=== PATIENT | female | born 1945 | race African-American/Black ===

== ENCOUNTER 2016-06-30 18:04 | Inpatient (IN) | payer BC ==
--- NOTE | ~2016-06-30 | DS ---
Discharge Summary [facility] [address] [place]. [address] NAME: FLY BELTRÁN : 41 STATUS : DIS IN PAT#: [id number] AGE: 70 ADM/REG DATE : 07/01/16 MR#: [id number] REPORT SERV DATE: 07/02/16 DICTATED BY: SHEFALI PRICE II DATE: 07/01/16 REPORT STATUS : Draft TRANSCRIBED BY: MODCharu DATE: 07/01/16 ADMISSION DATE: 07/01/2016 DISCHARGE DATE: 07/01/2016 DISCHARGE DIAGNOSES: 1. Systemic inflammatory response syndrome likely secondary to the patient's underlying progression of chronic lymphocytic leukemia. 2. Chronic lymphocytic leukemia with disease progression followed by Dr. Yap. 3. Chronic abdominal pain. 4. Splenomegaly. 5. History of ulcerative colitis. 6. History of hypertension. 7. History of hyperlipidemia. 8. History of deep vein thrombosis, on Xarelto. CONSULTS: Garrett Yap M.D. BRIEF HISTORY OF PRESENT ILLNESS: The patient is a 70-year-old female with the above history who presented to [facility] due to fever and abdominal pain. For detailed history and physical examination, please see Dr. Jarquin's note from 07/01/2016. HOSPITAL COURSE: After admission, the patient was placed on broad-spectrum antibiotics as her temperature was up to 103. Given her abdominal pain, she had a CT of the abdomen and pelvis which was unremarkable for any acute pathology, but did show extensive adenopathy throughout the mesenterium, retroperitoneum, and bilateral pelvis consistent with patient's history of CLL. Otherwise splenomegaly. Her urinalysis was unremarkable and chest x-ray showed a prominence of the superior portion of the right hilum possibly hilar adenopathy. Her white blood cell count is 49 consistent with her history. Dr. Yap evaluated the patient this morning, and thought that all of her symptoms have been chronic and related to her underlying disease process. He is planning on starting her on clinical trial starting tomorrow and is recommending discharging home and follow up in clinic. Currently, her fever has resolved. She was mildly tachycardic and her heart rate has improved and she feels better. We will continue her home medications and discharge home. DISCHARGE MEDICATIONS: 1. Atorvastatin 10 mg p.o. at bedtime. 2. Prilosec 40 mg p.o. daily. 3. Xarelto 20 mg p.o. daily. 4. Bentyl 10 mg p.o. t.i.d. p.r.n. 5. Norvasc 10 mg p.o. daily. 6. Valsartan 320 mg p.o. daily. DISCHARGE INSTRUCTIONS: Followup with Dr. Yap tomorrow. Discharge Summary [address] [place]. [address] NAME: FLY BELTRÁN : 41 STATUS : DIS IN PAT#: [id number] AGE: 70 ADM/REG DATE : 07/01/16 MR#: [id number] REPORT SERV DATE: 07/02/16 DICTATED BY: SHEFALI PRICE II DATE: 07/01/16 REPORT STATUS : Draft TRANSCRIBED BY: ARMANDO DATE: 07/01/16 NICOLE/ARMANDO Shefali Price II, MD / [id number] CC: MD Joshua Harrison M.D.
--- NOTE | ~2016-06-30 | HP ---
History And Physical [place] [address] [facility] [place]. [address] NAME: FLY BELTRÁN : 41 STATUS : ADM IN [facility]#: [id number] AGE: 70 ADM/REG DATE : 07/01/16 MR#: [id number] REPORT SERV DATE: 07/01/16 DICTATED BY: SHEFALI CALVO DATE: 07/01/16 REPORT STATUS : Draft TRANSCRIBED BY: ARMANDO DATE: 07/01/16 DATE OF ADMISSION: 07/01/2016 POINT OF ENTRY: [facility] Emergency Department. PRIMARY ONCOLOGIST: Garrett Yap M.D. PRIMARY NEW ACCOUNT INTERVIEWER: Bashir Lawson M.D. CHIEF COMPLAINT: Fevers and abdominal pain. HISTORY OF PRESENT ILLNESS: Ms Beltrán is a 70-year-old female with history of CLL, not currently undergoing chemotherapy as well as hypertension, hyperlipidemia, and ulcerative colitis, who presents to the emergency department today with a two-day history of diffuse abdominal pain with associated fevers. The patient states that she started to develop diffuse primarily epigastric abdominal pain yesterday without any associated nausea or vomiting. The patient states that she has chronic diarrhea from ulcerative colitis and did not notice any changes in the appearance or frequency of her diarrheal stools. She started to develop fevers late this afternoon as high as 101 to 102 degrees Fahrenheit prompting her presentation to the emergency department. The patient also reports some headaches, but denies any night sweats, chills, chest pain, palpitations, cough, sputum production, shortness of breath, nausea, vomiting, dysuria, melena, hematochezia, hemoptysis, or hematemesis. Comprehensive review of systems otherwise negative unless listed in history of present illness. Initial evaluation in the emergency room notable for a fever of 103.2 degrees Fahrenheit with a pulse of 125. White count is elevated at 49,200. Her flu swab was negative. Chest x-ray was clear. CT scan of the abdomen and pelvis was unremarkable. The patient was given some IV fluids for borderline low blood pressure as well as empiric IV antibiotics and admitted to the Hospitalist Service for further evaluation and management. PREVIOUS MEDICAL HISTORY: 1. CLL. 2. Hypertension. 3. Hyperlipidemia. 4. Colonic polyps. 5. Ulcerative colitis. SURGICAL HISTORY: Abdominal hysterectomy. ALLERGIES: NO KNOWN DRUG ALLERGIES. HOME MEDICATIONS: History And Physical [address] [address] NAME: FLY BELTRÁN : 41 STATUS : ADM IN [facility]#: [id number] AGE: 70 ADM/REG DATE : 07/01/16 MR#: [id number] REPORT SERV DATE: 07/01/16 DICTATED BY: SHEFALI CALVO DATE: 07/01/16 REPORT STATUS : Draft TRANSCRIBED BY: ARMANDO DATE: 07/01/16 1. Norvasc 10 mg daily. 2. Atorvastatin 10 mg q.h.s. 3. Bentyl 10 mg t.i.d. p.r.n. 4. Omeprazole 40 mg daily. 5. Xarelto 20 mg daily. 6. Valsartan 320 mg daily. SOCIAL HISTORY: She denies any tobacco, alcohol, or illicits. FAMILY MEDICAL HISTORY: Mother in her 90s with history of stroke. Father with history of coronary artery disease. Siblings with history of stroke. LABS AND IMAGIN. White count is 49.2, hemoglobin is 12.8, hematocrit is 37.5, and platelet count is 105. 2. Sodium is 140, potassium 4.2, chloride 105, carbon dioxide 24, BUN 11, creatinine 1.13, glucose is 115, calcium is 9.2, protein is 7.5, albumin is 4.0, bilirubin is 1.1. ALT is 13, AST 16, alkaline phosphatase is 120. 3. Lactic acid is 0.9. 4. Flu swab was negative. 5. Urinalysis; specific gravity is 1.016 hazy, but no evidence of any infection. 6. Her chest x-ray per my review shows no acute cardiopulmonary abnormality. 7. CT scan of the abdomen and pelvis shows widespread bulky lymphadenopathy with splenomegaly, but with no acute abdominopelvic pathology. She is also status post abdominal hysterectomy. PHYSICAL EXAMINATION: VITAL SIGNS: Temperature is 103.0 degrees Fahrenheit, pulse is 125, respirations 18, saturating 98% on room air, and blood pressure 136/79. On recheck, it is now 106/57, pulse is 86. GENERAL: The patient is awake and alert, in no acute distress. Resting comfortably. She is a well-developed, well-nourished, -[place] female. HEENT: Atraumatic and normocephalic. Moist mucous membranes. Pupils are equal, round, reactive to light and accommodation. Extraocular eye movements intact. No scleral icterus. NECK: No jugular venous distention. No carotid bruits. CARDIAC: Regular rate and rhythm. No murmurs or gallops. Normal S1 and normal S2. LUNGS: Clear to auscultation bilaterally. No wheezes, rhonchi, or crackles. ABDOMEN: Soft, mildly tender to palpation over all quadrants. No rebound, guarding, or rigidity. Hypoactive bowel sounds throughout. EXTREMITIES: Warm and perfused. No cyanosis, clubbing, or edema. SKIN: Warm and dry. PSYCH: Affect appropriate. NEURO: Alert and oriented x3. Cranial nerves 2 through 12 grossly intact. Speech is normal. Gait not assessed. ASSESSMENT AND PLAN: Ms Beltrán is a 70-year-old female with a known history of chronic lymphocytic leukemia as well as ulcerative colitis, who presents with abdominal pain and fevers, and found to have evidence of systemic inflammatory response of unclear etiology. History And Physical [address] [address] NAME: FLY BELTRÁN : 41 STATUS : ADM IN [facility]#: [id number] AGE: 70 ADM/REG DATE : 07/01/16 MR#: [id number] REPORT SERV DATE: 07/01/16 DICTATED BY: SHEFALI CALVO DATE: 07/01/16 REPORT STATUS : Draft TRANSCRIBED BY: MODCharu DATE: 07/01/16 PROBLEM LIST: 1. Systemic inflammatory response. 2. Abdominal pain. 3. Borderline low blood pressure. 4. History of CLL. 5. History of ulcerative colitis. 6. Hypertension. PLAN: 1. Systemic inflammatory response. She meets criteria with tachycardia as well as fevers, also has leukocytosis; however, is unclear how much of this is chronic from her CLL. Blood cultures have been obtained. We will also obtain a procalcitonin. Flu swab was negative as was imaging and urinalysis. We will continue broad-spectrum antibiotics as well as IV fluid hydration. Follow up procalcitonin as well as blood cultures. 2. Abdominal pain, unclear etiology at this time. She does have a history of ulcerative colitis; however, CT scan of abdomen and pelvis was largely unremarkable. Lactic acid within normal limits. We will check a lipase and amylase. 3. History of CLL, per Oncology. 4. Hypertension. Given the patient's borderline low blood pressure we will hold her amlodipine as well as her valsartan. Provide aggressive IV fluid hydration. 5. DVT prophylaxis. The patient is on anticoagulation. CODE STATUS: The patient wished to be full code. JCB/MODL Shefali Calvo MD / [id number] CC: MD Joshua Harrison M.D. Bertrand Marquess Anz III, M.D. Matthew Bagamery, M.D.
[2016-06-30 18:44] LABS: HEMATOCRIT 37.5 % (36.0-48.0); HEMOGLOBIN 12.8 g/dL (12.0-16.0); MEAN CORPUS HGB CONC 34.1 g/dL (32.0-36.0); MEAN CORPUSCULAR HEMOGLOB 30.7 pg (26.0-34.0); MEAN PLATELET VOLUME 10.8 fL (9.2-13.0); PLATELET COUNT 105 10/3/uL (150-400)
[2016-06-30 18:47] LABS: ASCORBIC ACID (UR NOT ORDER) NEG (NEG); BILIRUBIN, URINE NEGATIVE (NEG); ER URINALYSIS TAT 0 Hrs 13 Mins; KETONE, URINE NEGATIVE (NEG); LEUKOCYTE ESTERASE(NOT OR NEG (NEG); NITRITE (URINE) NEG (NEG); WBC (NOT ORDERED) (RFLEX) < 1 (0-5)
[2016-06-30 18:47] LABS: ER CBC TAT 0 Hrs 10 Mins; MEAN CORPUSCULAR VOLUME 89.9 fL (80-100); RED CELL COUNT 4.17 10/6/uL (4.0-5.6); WHITE BLOOD CELLS 49.2 10/3/uL (4.5-10.5)
[2016-06-30 18:48] LABS: MANUAL DIFF YES %
[2016-06-30 18:56] LABS: BUN (BLOOD UREA NITROGEN) 11 MG/DL (6-23); CALCIUM, SERUM 9.2 MG/DL (8.5-10.4); CHLORIDE, SERUM 105 MMOL/L (96-112); CO2 (CARBON DIOXIDE) 24 MMOL/L (24-34); CREATININE 1.13 MG/DL (0.55-1.02); GFR AFRICAN AMERICAN 56 ML/MIN (>=60); GFR NON AFRICAN AMERICAN 49 ML/MIN (>=60); GLUCOSE, SERUM 115 MG/DL (60-99); POTASSIUM, SERUM 4.2 MMOL/L (3.5-5.3); SGOT(AST) 16 U/L (5-40); SGPT(ALT) 13 U/L (5-65); SODIUM, SERUM 140 MMOL/L (135-148); TOTAL PROTEIN 7.5 G/DL (6.0-8.5)
[2016-06-30 19:00] LABS: A/G RATIO 1.1 (0.7-1.9); ALKALINE PHOSPHATASE 120 U/L (45-117); GLOBULIN 3.5 G/DL (2.5-4.1); TOTAL BILIRUBIN 1.1 MG/DL (0-1.2)
[2016-06-30 22:45] LABS: INFLUENZA A SCREEN NEGATIVE (NEGATIVE); INFLUENZA B SCREEN NEGATIVE (NEGATIVE)
[2016-06-30 22:53] LABS: LACTATE 0.9 MMOL/L (0.3-2.4)
[2016-06-30] MEDS ORDERED: XARELTO20 MG PO (23:01)
[2016-06-30] MEDS ORDERED: BENTYL10 PO (23:01)
[2016-06-30] MEDS ORDERED: PRILOSEC40 MG PO (23:01)
[2016-06-30] MEDS ORDERED: NORV10 PO (23:01)
[2016-06-30] MEDS ORDERED: LIPITOR10 PO (23:02)
[2016-06-30] MEDS ORDERED: DIOVAN320 MG PO (23:02)
[2016-07-01 07:52] LABS: ER DIFF TAT 13 Hrs 15 Mins; LYMPHOCYTES 99 %; LYMPHOCYTES ABSOLUTE (CALC) 48.71 10/3/uL (0.67-4.30); MONOCYTES 1 %; MONOCYTES ABSOLUTE (CALC) 0.49 10/3/uL (0.21-1.20); TOTAL NUCLEATED CELLS 100
[2016-07-01 07:53] LABS: ANISOCYTOSIS 1+ (5-10/OIF) (0-5/OIF); PLATELET ESTIMATE SLT DEC (ADEQUATE); SMUDGE CELLS MANY
[2016-07-01 07:54] LABS: ELLIPTOCYTES 1+ (3-10/OIF) (0-2/OIF); SCHISTOCYTES OCC (0-2/OIF)
[2016-07-01 07:56] LABS: TEARDROP SHAPED RBCS OCC (0-2/OIF)
== END 2016-07-01 11:36 | disposition home or self-care (01) | DRG 841 ==
LOC: ER 18:04 → 7NO 07-01 01:26
PROVIDERS: Emergency Medicine; Internal Medicine; Nurse Practitioner Acute Care
DX: C91.10 Chronic lymphocytic leukemia of B-cell type not having achieved remission (principal); R65.10 Systemic inflammatory response syndrome (SIRS) of non-infectious origin without acute organ dysfunction; K51.90 Ulcerative colitis, unspecified, without complications; I10 Essential (primary) hypertension; E78.5 Hyperlipidemia, unspecified; R16.1 Splenomegaly, not elsewhere classified; Z86.718 Personal history of other venous thrombosis and embolism; Z86.010 Personal history of colon polyps; Z90.710 Acquired absence of both cervix and uterus; Z79.01 Long term (current) use of anticoagulants; Z82.3 Family history of stroke
CPT/HCPCS: 71020; 74176; 80053; 81001; 82150; 83605; 83690; 84145; 85025; 87040; 87804; 96374; 99285; A9270-GY; J0692; J3370